=== PATIENT | female | born 1945 | race Caucasian/White ===

== ENCOUNTER 2024-07-19 18:34 | Outpatient (BNV) | payer MEDICARE, OTHER, SELFPAY | END 2024-07-27 07:00 | PROVIDERS: Admitting Provider Psychiatry & Neurology Psychiatry; PCP Family Medicine; Visit Provider Radiology Diagnostic Radiology | DX: I70.203 Unspecified atherosclerosis of native arteries of extremities, bilateral legs (principal) | CPT/HCPCS: 93922; 93925 ==

== ENCOUNTER 2024-07-19 18:34 | Inpatient (IN) | payer MEDICARE, OTHER, SELFPAY ==
--- NOTE | ~2024-07-19 | CT_ITS ---
EXAMINATION: CT ANGIOGRAM HEAD AND NECK CLINICAL INFORMATION: Right MCA density on prior head CT dated 07/21/2024. COMPARISON: CT head 07/21/2024. TECHNIQUE: Noncontrast axial imaging of the head was performed. This was followed by test bolus sequences and head and neck intravenous bolus administration 70 mL of Omnipaque 350. Helical imaging was performed in the axial plane from the aortic arch to the skull vertex. A [address] head was also obtained. The data was processed at the automation technologist's workstation for generation of MIP sequences. Angled MIPs and volume rendered reformatted images were also generated at an offline 3D workstation. Stenoses are assessed in accordance with NASCET criteria unless otherwise indicated. This CT examination was performed using dose optimization techniques as appropriate, variously including the following: *Automated exposure control *Adjustment of mA and/or kV according to patient size (this includes techniques or standardized protocols for targeted exams where dose is matched to indication/reason for exam; i.e. extremities or head) *Use of iterative reconstruction technique FINDINGS: NONCONTRAST HEAD CT: There is no evidence of intracranial hemorrhage or extra-axial fluid collection. There is no mass effect, or edema. No CT evidence of acute territorial infarct. Negative dense MCA sign. Negative insular ribbon sign. (Review of the prior CT shows no definite hyperdense MCA sign as well). Ventricles, sulci, and cisterns are normal in size and configuration for patient age. No hydrocephalus. No midline shift. No significant white matter abnormalities. Empty sella noted. Mild atheromatous calcification of the bilateral carotid siphons and V4 segments vertebral arteries bilaterally. Globes and orbital contents image normally. No extracranial soft tissue abnormalities. The paranasal sinuses, mastoid air cells, and tympanic cavities are normally aerated. No suspicious bony abnormalities. NECK CTA: -AORTIC ARCH: Normal in caliber. Three-vessel branching pattern. -GREAT VESSEL ORIGINS: Widely patent. -RIGHT COMMON CAROTID ARTERY: Normal in course and caliber to the level of the bifurcation. -CERVICAL RIGHT INTERNAL CAROTID ARTERY: Mild calcific atherosclerotic disease of the carotid bulb and proximal internal carotid artery without flow-limiting stenosis. -LEFT COMMON CAROTID ARTERY: Normal in course and caliber to the level of the bifurcation. -CERVICAL LEFT INTERNAL CAROTID ARTERY: Mild calcific atherosclerotic disease of the carotid bulb and proximal internal carotid artery without flow-limiting stenosis. -CERVICAL RIGHT VERTEBRAL ARTERY: Codominant. Normal in origin, course and caliber into the skull base. -CERVICAL LEFT VERTEBRAL ARTERY: Codominant. Normal in origin, course and caliber into the skull base. OTHER, SOFT TISSUES: -Left substernal goiter. -There is a mass with central dense calcification in the right parotid gland, superficial lobe, measuring 2.7 x 1.4 x 2.4 cm. (Series 10, image 605). -There is fatty change of both parotid glands. -No abnormal neck lymphadenopathy. -Imaged lung apices demonstrate partial expiratory appearance, with diffuse mosaic attenuation of the lung parenchyma. No effusions. No pneumothorax. CTA OF THE BRAIN: -INTRACRANIAL INTERNAL CAROTID ARTERIES: Calcific atherosclerotic disease of the intracranial internal carotid arteries without occlusion or flow-limiting stenosis. -RIGHT ANTERIOR CEREBRAL ARTERY: Normal A1 segment. Normal arborization of the distal segments. -LEFT ANTERIOR CEREBRAL ARTERY: Normal A1 segment. Normal arborization of the distal segments. -ANTERIOR COMMUNICATING ARTERY: Normal. -RIGHT MIDDLE CEREBRAL ARTERY: Normal M1 segment of the MCA without focal stenosis or occlusion. Normal arborization of the distal segments. -LEFT MIDDLE CEREBRAL ARTERY: Normal M1 segment of the MCA without focal stenosis or occlusion. Normal arborization of the distal segments. -RIGHT VERTEBRAL ARTERY V4: Normal in course and caliber. -LEFT VERTEBRAL ARTERY V4: Normal in course and caliber. Both join to form the basilar. -BASILAR ARTERY: Normal without focal stenosis or occlusion. Normal appearance of the proximal superior cerebellar arteries. Normal basilar tip. -RIGHT POSTERIOR CEREBRAL ARTERY: Normal P1 segment. Normal opacification of the distal SUPPLIER QUALITY ENGINEER segments. -LEFT POSTERIOR CEREBRAL ARTERY: Normal P1 segment. Normal opacification of the distal SUPPLIER QUALITY ENGINEER segments. -POSTERIOR COMMUNICATING ARTERIES: Both are small but present. Normal opacification of the superior sagittal, straight, transverse, and sigmoid sinuses. No venous thrombosis. CT/CT angio head neck IMPRESSION: 1. Noncontrast head CT demonstrating no evidence of acute infarction, intracranial hemorrhage, mass effect, or edema. No definite hyperdense MCA sign is appreciated on this or the prior examination. 2. There is no evidence of major arterial stenosis, occlusion, dissection, or aneurysm in the major cervical or intracranial arterial vasculature. 3. Mosaic attenuation of the lung parenchyma, most likely on the basis of underlying air trapping. Differential includes constrictive (obliterative) bronchiolitis, hypersensitivity pneumonitis, as well as less commonly bronchial asthma, vasculitis, and chronic PE. 4. There is a 2.7 x 1.4 x 2.4 cm mass within the right inferior superficial parotid gland with central dense calcification. Differential diagnosis is most likely related to pleomorphic adenoma or Wharthin tumor. Correlate with any prior imaging or biopsy of this abnormality. 5. Left substernal goiter. Electronically signed by: Carlos Dixon MD 07/23/2024 02:22 PM JIMMY
--- NOTE | ~2024-07-19 | US_ITS ---
EXAMINATION: US NONINVASIVE ASSESSMENT OF THE BOTH LOWER EXTREMITY WITH ARTERIAL DUPLEX AND ANKLE BRACHIAL INDICES (ABIS) CLINICAL INFORMATION: Claudication. COMPARISON: None available. TECHNIQUE: Duplex Doppler techniques with waveform analysis and measurement of velocities in the common femoral, profunda femoris, superficial femoral, popliteal and tibial arteries were performed. In addition, ankle pulse volume recordings, ankle pressure measurements and ankle brachial indices were obtained of the both lower extremity arterial system. The study was performed only at rest. FINDINGS: NONINVASIVE ASSESSMENT OF THE ARTERIES OF BILATERAL LOWER EXTREMITIES WITH ABIs: RIGHT LEG: Ankle-brachial index: 1.29. Ankle PVR: Abnormal waveforms. LEFT LEG: Ankle-brachial index: 1.22. Left ankle PVR: Abnormal waveforms. STEFFANIE Reference: 0.9 - 1.4 = normal - no significant arterial disease 0.7 - 0.89 = mild peripheral arterial disease 0.51 - 0.69 = moderate peripheral arterial disease 0.50 = severe peripheral arterial disease RIGHT LOWER EXTREMITY DUPLEX ULTRASOUND: Common femoral artery: 126 cm/s. Biphasic waveforms. Spectral broadening. Profunda femoris artery: 70 cm/s. Biphasic waveform. Spectral broadening. Superficial femoral artery (proximal): 84 cm/s. Biphasic waveform. Superficial femoral artery (mid): 76 cm/s. Biphasic waveform. Superficial femoral artery (distal): 45 cm/s. Biphasic waveform. Popliteal artery: 55 cm/s Biphasic waveform. Spectral broadening. Posterior tibial artery: 84-100 cm/s Biphasic waveform. Dorsalis pedis artery: 74 cm/s. Biphasic waveform. Spectral broadening. Anterior tibialis artery: 62 cm/s. Biphasic waveform. LEFT LOWER EXTREMITY DUPLEX ULTRASOUND: Common femoral artery: 124 cm/s. Biphasic waveform. Profunda femoris artery: 56 cm/s. Biphasic waveform. Superficial femoral artery (proximal): 77 cm/s. Biphasic waveform. Superficial femoral artery (mid): 73 cm/s. Biphasic waveform. Superficial femoral artery (distal): 71 cm/s. Biphasic waveform. Popliteal artery: 58 cm/s Biphasic waveform. Posterior tibial artery: 69 cm/s Diastolic flow reversal: Biphasic waveform. Anterior tibialis artery: 58 cm/s. Biphasic waveform. Spectral broadening. Dorsalis pedis artery: 61 cm/s. Biphasic waveform. Spectral broadening. US/US arterial duplex BI w/ STEFFANIE IMPRESSION: Mild inflow disease, both lower extremity. Electronically signed by: Kevin Redman MD 07/27/2024 02:26 PM EST RP
--- NOTE | ~2024-07-19 | CT_ITS ---
CLINICAL HISTORY: memory dx paranoia CT head without contrast. Comparison: None Findings: No acute intracranial hemorrhage, edema, mass effect or extra-axial collection. The right MCA appears slightly more dense than the left. May reflect dense hematocrit and not clearly that of a dense vessel sign. If any symptoms referable to the right MCA territory, follow-up head CTA suggested. Mild low-attenuation periventricular white matter changes of mild chronic small vessel ischemia. No acute alteration in the alvarenga-white matter interface. Ventricles and sulci age-appropriate. No hydrocephalus. Pituitary, parasellar, hypothalamic and pineal regions are unremarkable. Posterior fossa structures intact. No Chiari malformation. Skull intact. Included paranasal sinuses and mastoids clear. Globes and orbits intact. IMPRESSION: Slightly dense right MCA possibly dense hematocrit. However if symptoms referable to the right MCA distribution, suggest follow-up head CTA. Otherwise no acute intracranial process. This document has been electronically signed by: Josue Shukla MD on 07/21/2024 12:40:10
[2024-07-19 19:21] VITALS: BP 150/65; PULSE 76; RESP 20; TEMP 36.8; O2SAT 94
[2024-07-19 19:22] VITALS: BMI 25.2
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
--- NOTE | 2024-07-20 06:28 | PHA.MEDREC ---
Pharmacy Consult ? Medication Reconciliation Pharmacy has reviewed med rec done by nursing. Matches claims from the pharmacy fill history.
[2024-07-20 09:08] VITALS: BP 136/63; PULSE 67; RESP 16; TEMP 36.1; O2SAT 98
[2024-07-20] MEDS: Sertraline HCL 50 MG TABLET PO (09:10)
[2024-07-20] MEDS: Ezetimibe 10 MG TABLET PO (09:10)
[2024-07-20] MEDS: Cyanocobalamin (Vitamin B-12) 1,000 MCG TABLET 1000 MCG PO (09:10)
[2024-07-20] MEDS: Losartan Potassium 25 MG TABLET PO (09:10)
[2024-07-20 09:21] LABS: Estimated Average Glucose 114 mg/dL; Hemoglobin A1C 145.7725 umol/L; Hemoglobin A1c % 5.6 % (<6.0); Total Hemoglobin (HGBA1C) 3886.5417 umol/L
[2024-07-20 09:28] LABS: Cholesterol 266 mg/dL (<200); HDL Cholesterol 59 mg/dL (>40); LDL Cholesterol Calculated 174 mg/dL (<100); Triglycerides 166 mg/dL (<150)
[2024-07-20 09:43] LABS: Free T4 (Free Thyroxine) 1.08 ng/dL (0.71-1.85); Thyroid Stimulating Hormone 2.99 uIU/mL (0.32-4.0)
[2024-07-20 09:56] LABS: Folate 10.9 ng/mL (> or = 4.0); Vitamin B12 1249 pg/mL (200-900)
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
--- NOTE | 2024-07-20 19:56 | HO.PM.IMCN ---
History of Present Illness Data of Consult Service Date: 07/20/24 Primary Care Provider: Maria T Keenan [facility] Reason for consult: Admission H&P Pt is an 79-year-old female with a PMH significant for HTN, HLD, dementia, and depression who is admitted to [facility] for paranoid hallucinations and increasing confusion. Family apparently noted pt to have problems with ?confusion? in 2019 and moved her at that time from [place] to [place] to be closer to family. Pt's memory has continued to deteriorate and has not been remembering to take her medications. Medical consult for admission H&P. ?Pt seen and evaluated in her room where she is resting comfortably in bed. Pt is alert and oriented to self only. Denies acute complaints. No fever, chills, nausea, vomiting, or abdominal pain. Denies chest pain/pressure palpitations. No difficulty breathing, SOB, or cough. Labs reviewed, significant for elevated lipid panel. A1c WNL at 5.6. Review of Systems Review of Systems: Pt has no medical complaints at this time. [facility] Medical History (Updated 07/20/24 @ 20:36 by NAGA Pugh) Depression Dementia Essential hypertension Mixed hyperlipidemia Social History Household Members: Other Housing: [facility] Housing Other:: locked nursing facility Patient Tobacco Use Status: Never used Tobacco Use of substances other than those prescribed or required for medical reasons: No Currently Displaying Signs/Symptoms of Drug Intoxication Withdrawal: No Advance Directives: No Advance Directives Information Provided: No Do you have thoughts of harming others: None Do you have a plan to hurt others: No Plan Recently lost weight without trying: Unsure Patient : No : No Poor oral hygiene: No service: No Sexual orientation: Straight/Heterosexual Meds Allergies Allergy/AdvReac Type Severity Reaction Status Date / Time No Known Allergies Allergy Verified 07/19/24 20:01 Active Medications: Current Medications Acetaminophen (Acetaminophen 325 Mg Tablet) 650 mg PO Q6H PRN PRN Reason: Headache/Pain, Scale 1-10 Al Hydroxide/Mg Hydroxide (Magnesium Hydrox/Alum Hydrox 30 Ml Oral.Susp) 30 ml PO Q6H PRN PRN Reason: Heartburn/Nausea Cyanocobalamin (Cyanocobalamin (Vitamin B-12) 1,000 Mcg Tablet) 1,000 mcg PO DAILY [facility] Last Admin: 07/20/24 09:10 Dose: 1,000 mcg Ezetimibe (Ezetimibe 10 Mg Tablet) 10 mg PO DAILY [facility] Last Admin: 07/20/24 09:10 Dose: 10 mg Hydroxyzine HCl (Hydroxyzine Hcl 25 Mg Tablet) 25 mg PO Q6H PRN PRN Reason: mild anxiety Losartan Potassium (Losartan Potassium 25 Mg Tablet) 25 mg PO DAILY [facility]; Protocol Last Admin: 07/20/24 09:10 Dose: 25 mg Magnesium Hydroxide (Milk Of Magnesia 30 Ml Oral.Susp) 30 ml PO DAILY PRN PRN Reason: Constipation Sertraline HCl (Sertraline Hcl 50 Mg Tablet) 50 mg PO DAILY [facility] Last Admin: 07/20/24 09:10 Dose: 50 mg Trazodone HCl (Trazodone Hcl 50 Mg Tablet) 50 mg PO BEDTIME MRX1 PRN PRN Reason: Insomnia Home Medications ?Medication ?Instructions ?Recorded ?Confirmed ?Last Taken ?Type cyanocobalamin (vitamin B-12) 1,000 mcg PO DAILY 07/19/24 07/19/24 Unknown History 1,000 mcg tablet ezetimibe 10 mg tablet 10 mg DAILY 07/19/24 07/19/24 Unknown History losartan 25 mg tablet 25 mg PO DAILY 07/19/24 07/19/24 Unknown History sertraline 50 mg tablet 50 mg PO DAILY 07/19/24 07/19/24 Unknown History Physical Exam Vital Signs and Narrative: Vital Signs: Last Vital Signs Temp 96.9 F 07/20/24 09:08 Pulse 67 07/20/24 09:08 Resp 16 07/20/24 09:08 BP 136/63 07/20/24 09:08 Pulse Ox 98 07/20/24 09:08 O2 Del Method Room Air 07/20/24 09:08 BMI result Body Mass Index 25.2 General: AOx1, no acute distress Resp: CTA bilaterally CVS: S1, S2, RRR GI: +BS, NT, no distention Skin: Warm, dry Neuro: Cranial nerves II-XII grossly intact bilaterally. Motor grossly intact bilaterally Extremities: No edema Psych: Pleasantly confused, cooperative. Results Labs Labs: Laboratory Results - last 24 hr 07/20/24 07/20/24 08:41 08:42 Estimat Average Glucose 114 Hemoglobin A1c % 5.6 Triglycerides 166 H Cholesterol 266 H LDL Cholesterol, Calc 174 H HDL Cholesterol 59 Vitamin B12 1249 H Folate 10.9 TSH 2.99 Free T4 1.08 Assessment and Plan (1) Medical clearance for psychiatric admission: Status: Acute Plan Pt is an 79-year-old female with a PMH significant for HTN, HLD, dementia, and depression who is admitted to [facility] for paranoid hallucinations and increasing confusion. Family apparently noted pt to have problems with ?confusion? in 2019 and moved her at that time from [place] to [place] to be closer to family. Pt's memory has continued to deteriorate and has not been remembering to take her medications. Medical consult for admission H&P. Mood disorder/dementia Plan as per Psychiatry HTN Continue losartan HLD Patient's lipid profile elevated Likely secondary to med noncompliance Continue ezetimibe Pt otherwise seems stable and without acute medical complaints. Will sign off for now. Thank you for allowing us to participate in the care of this patient. Please re-consult if any acute complaints or issues arise.
[2024-07-20 20:19] VITALS: BP 128/61; PULSE 82; RESP 17; TEMP 36.4; O2SAT 95
[2024-07-20] MEDS: risperiDONE 0.5 MG TABLET PO (21:50)
[2024-07-21 08:45] VITALS: BP 118/57; PULSE 77; RESP 16; TEMP 36.7; O2SAT 96
[2024-07-21 08:50] VITALS: BP 113/59
[2024-07-21] MEDS: Sertraline HCL 50 MG TABLET PO (08:50)
[2024-07-21] MEDS: Rivastigmine Tartrate 1.5 MG CAPSULE PO ×2 (08:50→19:43)
[2024-07-21] MEDS: Cyanocobalamin (Vitamin B-12) 1,000 MCG TABLET 1000 MCG PO (08:50)
[2024-07-21] MEDS: Losartan Potassium 25 MG TABLET PO (08:50)
[2024-07-21] MEDS: Ezetimibe 10 MG TABLET PO (08:50)
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
--- NOTE | 2024-07-21 12:58 | PC.NURSE ---
CT scan results from today called back critical and reported results via [employer] to Dr. Taylor.
[2024-07-21 19:40] VITALS: BP 145/58; PULSE 86; RESP 15; TEMP 36.2; O2SAT 95
[2024-07-21] MEDS: risperiDONE 0.5 MG TABLET PO (19:43)
[2024-07-22 07:44] VITALS: BP 133/65; PULSE 93; RESP 16; TEMP 36.4; O2SAT 95
[2024-07-22 08:24] VITALS: BP 133/65
[2024-07-22] MEDS: Rivastigmine Tartrate 1.5 MG CAPSULE PO ×2 (08:24→19:54)
[2024-07-22] MEDS: Losartan Potassium 25 MG TABLET PO (08:24)
[2024-07-22] MEDS: Cyanocobalamin (Vitamin B-12) 1,000 MCG TABLET 1000 MCG PO (08:24)
[2024-07-22] MEDS: Sertraline HCL 50 MG TABLET PO (08:24)
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
[2024-07-22] MEDS: Ezetimibe 10 MG TABLET PO (11:20)
[2024-07-22] MEDS: risperiDONE 0.5 MG TABLET PO (19:54)
[2024-07-22 20:00] VITALS: BP 139/63; PULSE 86; RESP 18; TEMP 35.7; O2SAT 95
--- NOTE | 2024-07-23 09:15 | HO.PSYCHPN ---
Subjective Subjective Date of Service: 07/23/24 Reason For Visit: paranoia memory loss Subjective Notes: Conditional Voluntary Interim History: Pt slept through the night. She is taking medications as prescribed. She was started on risperidone for paranoia. She is tolerating medication well. She presents as pleasant. She is not oriented to place, situation, or month or year. She denies any physical discomfort. Head CT had shown right MCA density. ordered CTA- no definitive signs of MCA density, no evidence of occlusion, dissection, stenosis or aneurysm. Mass with central dense calcification on right parotid gland (may need to be referred to ENT OP). No behavioral concerns. She is social with select peers. Medication Compliance: Yes Side effects from medications: No Diagnostics Vital Signs (24Hr): Vital Signs - 24 hr 07/22/24 20:00 Temperature 96.2 F L Pulse Rate 86 Respiratory Rate 18 Blood Pressure 139/63 Pulse Oximetry 95 Oxygen Delivery Method Room Air BMI result Body Mass Index 25.2 Labs 07/23/24 10:25 Medications Medications Current Medications Acetaminophen (Acetaminophen 325 Mg Tablet) 650 mg PO Q6H PRN PRN Reason: Headache/Pain, Scale 1-10 Al Hydroxide/Mg Hydroxide (Magnesium Hydrox/Alum Hydrox 30 Ml Oral.Susp) 30 ml PO Q6H PRN PRN Reason: Heartburn/Nausea Cyanocobalamin (Cyanocobalamin (Vitamin B-12) 1,000 Mcg Tablet) 1,000 mcg PO DAILY [facility] Last Admin: 07/22/24 08:24 Dose: 1,000 mcg Ezetimibe (Ezetimibe 10 Mg Tablet) 10 mg PO DAILY [facility] Last Admin: 07/22/24 11:20 Dose: 10 mg Hydroxyzine HCl (Hydroxyzine Hcl 25 Mg Tablet) 25 mg PO Q6H PRN PRN Reason: mild anxiety Losartan Potassium (Losartan Potassium 25 Mg Tablet) 25 mg PO DAILY [facility]; Protocol Last Admin: 07/22/24 08:24 Dose: 25 mg Magnesium Hydroxide (Milk Of Magnesia 30 Ml Oral.Susp) 30 ml PO DAILY PRN PRN Reason: Constipation Risperidone (Risperidone 0.5 Mg Tablet) 0.5 mg PO BEDTIME [facility] Last Admin: 07/22/24 19:54 Dose: 0.5 mg Rivastigmine Tartrate (Rivastigmine Tartrate 1.5 Mg Capsule) 1.5 mg PO BID [facility] Last Admin: 07/22/24 19:54 Dose: 1.5 mg Sertraline HCl (Sertraline Hcl 50 Mg Tablet) 50 mg PO DAILY [facility] Last Admin: 07/22/24 08:24 Dose: 50 mg Trazodone HCl (Trazodone Hcl 50 Mg Tablet) 50 mg PO BEDTIME MRX1 PRN PRN Reason: Insomnia Allergies Allergies Allergy/AdvReac Type Severity Reaction Status Date / Time No Known Allergies Allergy Verified 07/19/24 20:01 Assessment & Plan Assessment & Plan (1) Major neurocognitive disorder due to another medical condition, with psychotic disturbance: Status: Acute Code(s): F02.82 - Dementia in other diseases classified elsewhere, unspecified severity, with psychotic disturbance (2) Major depressive disorder, recurrent: Status: Acute Code(s): F33.9 - Major depressive disorder, recurrent, unspecified Plan The patient has a history of recurrent depression 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 History of depression history of hypertension hyperlipidemia unclear if has been treated unclear if patient has been taking her medication has been on Aricept in the past. Check h ead CT UA CBC Chem profile TSH B12 folate start Risperdal 0.5 mg at bedtime case was discussed with patient's son who will bring in paperwork regarding healthcare proxy which can be activated when we have clarification. Patient currently on a section 12 B continue sertraline start low-dose Exelon continue outpatient medications 07/21: Continue current management and treatment plan. Consider neurology consultation for head CT reading of Slightly dense right MCA possibly dense hematocrit. 07/22: continue current management and treatment plan. Consider neurology consultation for head CT reading of Slightly dense right MCA possibly dense hematocrit. 07/[address] had shown right MCA density. ordered CTA- no definitive signs of MCA density, no evidence of occlusion, dissection, stenosis or aneurysm. Mass with central dense calcification on right parotid gland measuring 2.7 x 1.4 x 2.4 cm (may need to be referred to ENT OP). Patient educated on: diagnosis and medication risk/benefits Guardian/Caregiver educated on: medication risk/benefits Informed Consent: understands Reason for continued inpatient stay Substantial Risk for: inability to function Time Spent With Patient Time: Total time managing care of this patient today _20___ minutes.
[2024-07-23 09:41] VITALS: BP 127/62; PULSE 81; RESP 16; TEMP 36.8; O2SAT 92
[2024-07-23] MEDS: Rivastigmine Tartrate 1.5 MG CAPSULE PO ×2 (09:42→20:31)
[2024-07-23] MEDS: Cyanocobalamin (Vitamin B-12) 1,000 MCG TABLET 1000 MCG PO (09:42)
[2024-07-23] MEDS: Ezetimibe 10 MG TABLET PO (09:42)
[2024-07-23] MEDS: Sertraline HCL 50 MG TABLET PO (09:42)
[2024-07-23] MEDS: Losartan Potassium 25 MG TABLET PO (09:43)
--- NOTE | 2024-07-23 09:50 | PC.NURSE ---
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 Staff stated that she will send someone.
[2024-07-23 10:52] LABS: Alanine Aminotransferase 16 U/L (0-31); Albumin Level 4.2 g/dL (3.5-5.0); Alkaline Phosphatase 50 U/L (39-117); Anion Gap 15 (12-20); Aspartate Amino Transferase 24 U/L (5-31); Bilirubin Total 0.5 mg/dL (0.0-1.0); Blood Urea Nitrogen 18 mg/dL (9-16); Calcium 9.6 mg/dL (8.4-10.2); Carbon Dioxide 23 mmol/L (22-29); Chloride 107 mmol/L (96-108); Creatinine Clr Calc Pharmacy 45.7; Estimated Glomerular Filt Rate 59; Glucose Random 106 mg/dL (60-115); Potassium 4.2 mmol/L (3.3-5.1); Sodium 141 mmol/L (135-145); Total Protein 7.9 g/dL (6.5-8.0)
[2024-07-23] MEDS: iohexoL 350 MG/ML 75 ML INFUS..BTL 70 ML IV (13:10)
[2024-07-23 20:00] VITALS: BP 139/65; PULSE 89; RESP 6; TEMP 36.4; O2SAT 95
[2024-07-23] MEDS: risperiDONE 0.5 MG TABLET PO (20:31)
[2024-07-24 10:36] VITALS: BP 153/61; PULSE 90; RESP 16; TEMP 36.8; O2SAT 95
[2024-07-24] MEDS: Rivastigmine Tartrate 1.5 MG CAPSULE PO ×2 (10:37→21:07)
[2024-07-24] MEDS: Sertraline HCL 50 MG TABLET PO (10:37)
[2024-07-24] MEDS: Losartan Potassium 25 MG TABLET PO (10:37)
[2024-07-24] MEDS: Ezetimibe 10 MG TABLET PO (10:37)
[2024-07-24] MEDS: Cyanocobalamin (Vitamin B-12) 1,000 MCG TABLET 1000 MCG PO (10:37)
--- NOTE | 2024-07-24 19:43 | HO.PSYCHPN ---
Subjective Subjective Date of Service: 07/24/24 Reason For Visit: paranoia memory loss Interim History: Pt slept through the night. She is taking medications as prescribed. She was started on risperidone for paranoia. She is tolerating medication well. She presents as pleasant. She is not oriented to place, situation, or month or year. She denies any physical discomfort. Head CT had shown right MCA density. ordered CTA- no definitive signs of MCA density, no evidence of occlusion, dissection, stenosis or aneurysm. Mass with central dense calcification on right parotid gland (may need to be referred to ENT OP). No behavioral concerns. She is social with select peers. Review of Systems Review of Systems Pt has no medical complaints at this time. Mental Status Exam Mental Status Exam Narrative: Appearance: wearing casual clothing, good hygiene, in NAD Behavior: cooperative and friendly Psychomotor: no agitation or retardation, no motor symptoms noted on lower or upper extremities. Speech: clear, normal rate/rhythm/volume, spontaneous TP: mostly linear TC: feeling safe here, likes people here Mood: good Affect: congruent, bright SI: none HI: none VH/AH: none Delusions: no overt now, still thinks someone was at her house Insight/judgment: impaired x 2. Memory/cog: alert, not oriented to place, month, year nor situation Diagnostics Vital Signs (24Hr): Vital Signs - 24 hr 07/23/24 20:00 07/24/24 10:36 Temperature 97.5 F 98.2 F Pulse Rate 89 90 Respiratory Rate 6 L 16 Blood Pressure 139/65 153/61 H Pulse Oximetry 95 95 Oxygen Delivery Method Room Air BMI result Body Mass Index 25.2 Labs 07/23/24 10:25 Labs: Laboratory Results - last 48 hr 07/23/24 10:25 Sodium 141 Potassium 4.2 Chloride 107 Carbon Dioxide 23 Anion Gap 15 BUN 18 H Creatinine 0.92 Estim Creat Clear Calc 45.7 Estimated GFR 59 Random Glucose 106 Calcium 9.6 Total Bilirubin 0.5 AST 24 ALT 16 Alkaline Phosphatase 50 Total Protein 7.9 Albumin 4.2 Imaging Radiology Impressions: ITS Impressions Head/Neck CTA 07/23/24 12:38 IMPRESSION: 1. Noncontrast head CT demonstrating no evidence of acute infarction, intracranial hemorrhage, mass effect, or edema. No definite hyperdense MCA sign is appreciated on this or the prior examination. 2. There is no evidence of major arterial stenosis, occlusion, dissection, or aneurysm in the major cervical or intracranial arterial vasculature. 3. Mosaic attenuation of the lung parenchyma, most likely on the basis of underlying air trapping. Differential includes constrictive (obliterative) bronchiolitis, hypersensitivity pneumonitis, as well as less commonly bronchial asthma, vasculitis, and chronic PE. 4. There is a 2.7 x 1.4 x 2.4 cm mass within the right inferior superficial parotid gland with central dense calcification. Differential diagnosis is most likely related to pleomorphic adenoma or Wharthin tumor. Correlate with any prior imaging or biopsy of this abnormality. 5. Left substernal goiter. Electronically signed by: Carlos Dixon MD 07/23/2024 02:22 PM [facility] Medications Medications Current Medications Acetaminophen (Acetaminophen 325 Mg Tablet) 650 mg PO Q6H PRN PRN Reason: Headache/Pain, Scale 1-10 Al Hydroxide/Mg Hydroxide (Magnesium Hydrox/Alum Hydrox 30 Ml Oral.Susp) 30 ml PO Q6H PRN PRN Reason: Heartburn/Nausea Cyanocobalamin (Cyanocobalamin (Vitamin B-12) 1,000 Mcg Tablet) 1,000 mcg PO DAILY [facility] Last Admin: 07/24/24 10:37 Dose: 1,000 mcg Ezetimibe (Ezetimibe 10 Mg Tablet) 10 mg PO DAILY [facility] Last Admin: 07/24/24 10:37 Dose: 10 mg Hydroxyzine HCl (Hydroxyzine Hcl 25 Mg Tablet) 25 mg PO Q6H PRN PRN Reason: mild anxiety Losartan Potassium (Losartan Potassium 25 Mg Tablet) 25 mg PO DAILY [facility]; Protocol Last Admin: 07/24/24 10:37 Dose: 25 mg Magnesium Hydroxide (Milk Of Magnesia 30 Ml Oral.Susp) 30 ml PO DAILY PRN PRN Reason: Constipation Risperidone (Risperidone 0.5 Mg Tablet) 0.5 mg PO BEDTIME [facility] Last Admin: 07/23/24 20:31 Dose: 0.5 mg Rivastigmine Tartrate (Rivastigmine Tartrate 1.5 Mg Capsule) 1.5 mg PO BID [facility] Last Admin: 07/24/24 10:37 Dose: 1.5 mg Sertraline HCl (Sertraline Hcl 50 Mg Tablet) 50 mg PO DAILY [facility] Last Admin: 07/24/24 10:37 Dose: 50 mg Trazodone HCl (Trazodone Hcl 50 Mg Tablet) 50 mg PO BEDTIME MRX1 PRN PRN Reason: Insomnia Allergies Allergies Allergy/AdvReac Type Severity Reaction Status Date / Time No Known Allergies Allergy Verified 07/19/24 20:01 Assessment & Plan Assessment & Plan (1) Major neurocognitive disorder due to another medical condition, with psychotic disturbance: Status: Acute Code(s): F02.82 - Dementia in other diseases classified elsewhere, unspecified severity, with psychotic disturbance Plan The patient has a history of recurrent depression 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 History of depression history of hypertension hyperlipidemia unclear if has been treated unclear if patient has been taking her medication has been on Aricept in the past. Check h ead CT UA CBC Chem profile TSH B12 folate start Risperdal 0.5 mg at bedtime case was discussed with patient's son who will bring in paperwork regarding healthcare proxy which can be activated when we have clarification. Patient currently on a section 12 B continue sertraline start low-dose Exelon continue outpatient medications 07/21: Continue current management and treatment plan. Consider neurology consultation for head CT reading of Slightly dense right MCA possibly dense hematocrit. 07/22: continue current management and treatment plan. Consider neurology consultation for head CT reading of Slightly dense right MCA possibly dense hematocrit. 07/[address] had shown right MCA density. ordered CTA- no definitive signs of MCA density, no evidence of occlusion, dissection, stenosis or aneurysm. Mass with central dense calcification on right parotid gland measuring 2.7 x 1.4 x 2.4 cm (may need to be referred to ENT OP). 07/24 continue current tx. HCP received from family but it is invalid as it does not contain witness signatures. Pt does have capacity to name HCP and understands form. Reason for continued inpatient stay Substantial Risk for: inability to function Time Spent With Patient Time: Total time managing care of this patient today ____ minutes.
[2024-07-24 20:00] VITALS: BP 129/62; PULSE 82; RESP 16; TEMP 36.6; O2SAT 94
[2024-07-24] MEDS: risperiDONE 0.5 MG TABLET PO (21:07)
[2024-07-25 08:00] VITALS: BP 159/65; PULSE 72; TEMP 36.8; O2SAT 95
[2024-07-25] MEDS: Ezetimibe 10 MG TABLET PO (08:37)
[2024-07-25] MEDS: Sertraline HCL 50 MG TABLET PO (08:37)
[2024-07-25] MEDS: Losartan Potassium 25 MG TABLET PO (08:37)
[2024-07-25] MEDS: Cyanocobalamin (Vitamin B-12) 1,000 MCG TABLET 1000 MCG PO (08:38)
[2024-07-25] MEDS: Rivastigmine Tartrate 1.5 MG CAPSULE PO ×2 (08:38→20:31)
--- NOTE | 2024-07-25 17:07 | P.PNPSI_ITS ---
Subjective Subjective Date of Service: 07/25/24 Reason For Visit: paranoia memory loss Subjective Notes: Conditional Voluntary Healthcare Proxy: Yes Interim History: Pt slept through the night. She is taking medications as prescribed. No overt paranoid delusions noted when meeting with patient. She is social with peers, feels safe. She denies SI/HI. No overt psychosis. When asked about what was going at home, she states it was horrible, I don't even want to talk about that! She denies any physical concerns. She attends groups. Review of Systems Review of Systems Pt has no medical complaints at this time. Mental Status Exam Mental Status Exam Narrative: Appearance: wearing casual clothing, good hygiene, in NAD Behavior: cooperative and friendly Psychomotor: no agitation or retardation, no motor symptoms noted on lower or upper extremities. Speech: clear, normal rate/rhythm/volume, spontaneous TP: mostly linear TC: feeling safe here, likes people here Mood: good Affect: congruent, bright SI: none HI: none VH/AH: none Delusions: no overt now, still thinks someone was at her house Insight/judgment: impaired x 2. Memory/cog: alert, not oriented to place, month, year nor situation Diagnostics Vital Signs (24Hr): Vital Signs - 24 hr 07/24/24 20:00 07/25/24 08:00 Temperature 98 F 98.2 F Pulse Rate 82 72 Respiratory Rate 16 Blood Pressure 129/62 159/65 H Pulse Oximetry 94 95 Oxygen Delivery Method Room Air Room Air BMI result Body Mass Index 25.2 Labs 07/23/24 10:25 Imaging Radiology Impressions: ITS Impressions Head/Neck CTA 07/23/24 12:38 IMPRESSION: 1. Noncontrast head CT demonstrating no evidence of acute infarction, intracranial hemorrhage, mass effect, or edema. No definite hyperdense MCA sign is appreciated on this or the prior examination. 2. There is no evidence of major arterial stenosis, occlusion, dissection, or aneurysm in the major cervical or intracranial arterial vasculature. 3. Mosaic attenuation of the lung parenchyma, most likely on the basis of underlying air trapping. Differential includes constrictive (obliterative) bronchiolitis, hypersensitivity pneumonitis, as well as less commonly bronchial asthma, vasculitis, and chronic PE. 4. There is a 2.7 x 1.4 x 2.4 cm mass within the right inferior superficial parotid gland with central dense calcification. Differential diagnosis is most likely related to pleomorphic adenoma or Wharthin tumor. Correlate with any prior imaging or biopsy of this abnormality. 5. Left substernal goiter. Electronically signed by: Carlos Dixon MD 07/23/2024 02:22 PM [facility] Medications Medications Current Medications Acetaminophen (Acetaminophen 325 Mg Tablet) 650 mg PO Q6H PRN PRN Reason: Headache/Pain, Scale 1-10 Al Hydroxide/Mg Hydroxide (Magnesium Hydrox/Alum Hydrox 30 Ml Oral.Susp) 30 ml PO Q6H PRN PRN Reason: Heartburn/Nausea Cyanocobalamin (Cyanocobalamin (Vitamin B-12) 1,000 Mcg Tablet) 1,000 mcg PO DAILY [facility] Last Admin: 07/25/24 08:38 Dose: 1,000 mcg Ezetimibe (Ezetimibe 10 Mg Tablet) 10 mg PO DAILY [facility] Last Admin: 07/25/24 08:37 Dose: 10 mg Hydroxyzine HCl (Hydroxyzine Hcl 25 Mg Tablet) 25 mg PO Q6H PRN PRN Reason: mild anxiety Losartan Potassium (Losartan Potassium 25 Mg Tablet) 25 mg PO DAILY [facility]; Protocol Last Admin: 07/25/24 08:37 Dose: 25 mg Magnesium Hydroxide (Milk Of Magnesia 30 Ml Oral.Susp) 30 ml PO DAILY PRN PRN Reason: Constipation Risperidone (Risperidone 0.5 Mg Tablet) 0.5 mg PO BEDTIME [facility] Last Admin: 07/24/24 21:07 Dose: 0.5 mg Rivastigmine Tartrate (Rivastigmine Tartrate 1.5 Mg Capsule) 1.5 mg PO BID [facility] Last Admin: 07/25/24 08:38 Dose: 1.5 mg Sertraline HCl (Sertraline Hcl 50 Mg Tablet) 50 mg PO DAILY [facility] Last Admin: 07/25/24 08:37 Dose: 50 mg Trazodone HCl (Trazodone Hcl 50 Mg Tablet) 50 mg PO BEDTIME MRX1 PRN PRN Reason: Insomnia Allergies Allergies Allergy/AdvReac Type Severity Reaction Status Date / Time No Known Allergies Allergy Verified 07/19/24 20:01 Assessment & Plan Assessment & Plan (1) Major neurocognitive disorder due to another medical condition, with psychotic disturbance: Status: Acute Code(s): F02.82 - Dementia in other diseases classified elsewhere, unspecified severity, with psychotic disturbance Plan The patient has a history of recurrent depression 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 History of depression history of hypertension hyperlipidemia unclear if has been treated unclear if patient has been taking her medication has been on Aricept in the past. Check h ead CT UA CBC Chem profile TSH B12 folate start Risperdal 0.5 mg at bedtime case was discussed with patient's son who will bring in paperwork regarding healthcare proxy which can be activated when we have clarification. Patient currently on a section 12 B continue sertraline start low-dose Exelon continue outpatient medications 07/21: Continue current management and treatment plan. Consider neurology consultation for head CT reading of Slightly dense right MCA possibly dense hematocrit. 07/22: continue current management and treatment plan. Consider neurology consultation for head CT reading of Slightly dense right MCA possibly dense hematocrit. 07/[address] had shown right MCA density. ordered CTA- no definitive signs of MCA density, no evidence of occlusion, dissection, stenosis or aneurysm. Mass with central dense calcification on right parotid gland measuring 2.7 x 1.4 x 2.4 cm (may need to be referred to ENT OP). 07/24 continue current tx. HCP received from family but it is invalid as it does not contain witness signatures. Pt does have capacity to name HCP and understands form. 07/25 Pt able to complete HCP. HCP has been invoked. She is stable, no behavioral concerns. family meeting pending. Reason for continued inpatient stay Substantial Risk for: inability to function Time Spent With Patient Time: Total time managing care of this patient today ____ minutes.
[2024-07-25 20:00] VITALS: BP 140/63; PULSE 90; RESP 17; TEMP 36.6; O2SAT 92
[2024-07-25] MEDS: hydrOXYzine HCL 25 MG TABLET PO (20:31)
[2024-07-25] MEDS: risperiDONE 0.5 MG TABLET PO (20:31)
[2024-07-26 08:00] VITALS: PULSE 84; RESP 17; TEMP 36.4; O2SAT 95
[2024-07-26 08:29] VITALS: BP 155/67
[2024-07-26] MEDS: Losartan Potassium 25 MG TABLET PO (08:29)
[2024-07-26] MEDS: Ezetimibe 10 MG TABLET PO (08:29)
[2024-07-26] MEDS: Rivastigmine Tartrate 1.5 MG CAPSULE PO ×2 (08:29→20:31)
[2024-07-26] MEDS: Sertraline HCL 50 MG TABLET PO (08:29)
[2024-07-26] MEDS: Cyanocobalamin (Vitamin B-12) 1,000 MCG TABLET 1000 MCG PO (08:29)
[2024-07-26 13:27] VITALS: BMI 25.6
[2024-07-26 20:00] VITALS: BP 137/68; PULSE 86; RESP 16; TEMP 36.2; O2SAT 92
[2024-07-26] MEDS: risperiDONE 0.5 MG TABLET PO (20:31)
--- NOTE | 2024-07-26 20:58 | HO.PSYCHPN ---
Subjective Subjective Date of Service: 07/26/24 Reason For Visit: paranoia memory loss Subjective Notes: Conditional Voluntary Interim History: Pt slept through the night. She is taking medications as prescribed. She is social with peers, attends groups. She reports calves pain when ambulating, no pain when she is sitting. on exam- no pain when touching, no edema, slightly warm. consulted with Dr. Mg who recommends consult with vascular doctor. 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 Rosales, they don't see pts on psych unit. Discussed again with Dr. Mg who recommends ordering US arterial duplex BI with [facility]. Medication Compliance: Yes Side effects from medications: No Review of Systems Review of Systems Pt has no medical complaints at this time. Mental Status Exam Mental Status Exam Narrative: Appearance: wearing casual clothing, good hygiene, in NAD Behavior: cooperative and friendly Psychomotor: no agitation or retardation, no motor symptoms noted on lower or upper extremities. Speech: clear, normal rate/rhythm/volume, spontaneous TP: mostly linear TC: feeling safe here, likes people here Mood: good Affect: congruent, bright SI: none HI: none VH/AH: none Delusions: no overt now, still thinks someone was at her house Insight/judgment: impaired x 2. Memory/cog: alert, not oriented to place, month, year nor situation Diagnostics Vital Signs (24Hr): Vital Signs - 24 hr 07/26/24 08:00 07/26/24 08:29 Temperature 97.5 F Pulse Rate 84 Respiratory Rate 17 Blood Pressure 155/67 H Pulse Oximetry 95 Oxygen Delivery Method Room Air BMI result Body Mass Index 25.6 Labs 07/23/24 10:25 Imaging Radiology Impressions: ITS Impressions Head/Neck CTA 07/23/24 12:38 IMPRESSION: 1. Noncontrast head CT demonstrating no evidence of acute infarction, intracranial hemorrhage, mass effect, or edema. No definite hyperdense MCA sign is appreciated on this or the prior examination. 2. There is no evidence of major arterial stenosis, occlusion, dissection, or aneurysm in the major cervical or intracranial arterial vasculature. 3. Mosaic attenuation of the lung parenchyma, most likely on the basis of underlying air trapping. Differential includes constrictive (obliterative) bronchiolitis, hypersensitivity pneumonitis, as well as less commonly bronchial asthma, vasculitis, and chronic PE. 4. There is a 2.7 x 1.4 x 2.4 cm mass within the right inferior superficial parotid gland with central dense calcification. Differential diagnosis is most likely related to pleomorphic adenoma or Wharthin tumor. Correlate with any prior imaging or biopsy of this abnormality. 5. Left substernal goiter. Electronically signed by: Carlos Dixon MD 07/23/2024 02:22 PM [facility] Medications Medications Current Medications Acetaminophen (Acetaminophen 325 Mg Tablet) 650 mg PO Q6H PRN PRN Reason: Headache/Pain, Scale 1-10 Al Hydroxide/Mg Hydroxide (Magnesium Hydrox/Alum Hydrox 30 Ml Oral.Susp) 30 ml PO Q6H PRN PRN Reason: Heartburn/Nausea Cyanocobalamin (Cyanocobalamin (Vitamin B-12) 1,000 Mcg Tablet) 1,000 mcg PO DAILY [facility] Last Admin: 07/26/24 08:29 Dose: 1,000 mcg Ezetimibe (Ezetimibe 10 Mg Tablet) 10 mg PO DAILY [facility] Last Admin: 07/26/24 08:29 Dose: 10 mg Hydroxyzine HCl (Hydroxyzine Hcl 25 Mg Tablet) 25 mg PO Q6H PRN PRN Reason: mild anxiety Last Admin: 07/25/24 20:31 Dose: 25 mg Losartan Potassium (Losartan Potassium 25 Mg Tablet) 25 mg PO DAILY [facility]; Protocol Last Admin: 07/26/24 08:29 Dose: 25 mg Magnesium Hydroxide (Milk Of Magnesia 30 Ml Oral.Susp) 30 ml PO DAILY PRN PRN Reason: Constipation Risperidone (Risperidone 0.5 Mg Tablet) 0.5 mg PO BEDTIME [facility] Last Admin: 07/26/24 20:31 Dose: 0.5 mg Rivastigmine Tartrate (Rivastigmine Tartrate 1.5 Mg Capsule) 1.5 mg PO BID [facility] Last Admin: 07/26/24 20:31 Dose: 1.5 mg Sertraline HCl (Sertraline Hcl 50 Mg Tablet) 50 mg PO DAILY [facility] Last Admin: 07/26/24 08:29 Dose: 50 mg Trazodone HCl (Trazodone Hcl 50 Mg Tablet) 50 mg PO BEDTIME MRX1 PRN PRN Reason: Insomnia Allergies Allergies Allergy/AdvReac Type Severity Reaction Status Date / Time No Known Allergies Allergy Verified 07/19/24 20:01 Assessment & Plan Assessment & Plan (1) Major neurocognitive disorder due to another medical condition, with psychotic disturbance: Status: Acute Code(s): F02.82 - Dementia in other diseases classified elsewhere, unspecified severity, with psychotic disturbance Plan The patient has a history of recurrent depression 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 History of depression history of hypertension hyperlipidemia unclear if has been treated unclear if patient has been taking her medication has been on Aricept in the past. Check h ead CT UA CBC Chem profile TSH B12 folate start Risperdal 0.5 mg at bedtime case was discussed with patient's son who will bring in paperwork regarding healthcare proxy which can be activated when we have clarification. Patient currently on a section 12 B continue sertraline start low-dose Exelon continue outpatient medications 07/21: Continue current management and treatment plan. Consider neurology consultation for head CT reading of Slightly dense right MCA possibly dense hematocrit. 07/22: continue current management and treatment plan. Consider neurology consultation for head CT reading of Slightly dense right MCA possibly dense hematocrit. 07/[address] had shown right MCA density. ordered CTA- no definitive signs of MCA density, no evidence of occlusion, dissection, stenosis or aneurysm. Mass with central dense calcification on right parotid gland measuring 2.7 x 1.4 x 2.4 cm (may need to be referred to ENT OP). 07/24 continue current tx. HCP received from family but it is invalid as it does not contain witness signatures. Pt does have capacity to name HCP and understands form. 07/25 continue tx 07/26 ordered US arterial duplex BI w/ [facility]. consulted Dr. Mg who initially had recommended consult to vascular, however, per Dr. Rosales they don't see pts on psych units. Dr. Mg then recommended US arterial duplex BI w/[facility]. Reason for continued inpatient stay Substantial Risk for: inability to function Time Spent With Patient Time: Total time managing care of this patient today ____ minutes.
[2024-07-27 08:00] VITALS: BP 136/60; PULSE 81; RESP 18; TEMP 36; O2SAT 96
[2024-07-27] MEDS: Rivastigmine Tartrate 1.5 MG CAPSULE PO ×2 (09:44→20:52)
[2024-07-27] MEDS: Ezetimibe 10 MG TABLET PO (09:44)
[2024-07-27] MEDS: Cyanocobalamin (Vitamin B-12) 1,000 MCG TABLET 1000 MCG PO (09:44)
[2024-07-27] MEDS: Losartan Potassium 25 MG TABLET PO (09:44)
[2024-07-27] MEDS: Sertraline HCL 50 MG TABLET PO (09:44)
--- NOTE | 2024-07-27 16:48 | P.PNPSI_ITS ---
Subjective Subjective Date of Service: 07/27/24 Reason For Visit: paranoia memory loss Subjective Notes: Conditional Voluntary Interim History: Pt slept through the night. She is taking medications as prescribed. She continues to present as social with peers. No behavioral concerns. No oriented to situation, month or year. She has good hygiene. We had family meeting discussed aftercare planning with goal to return home with additional services, family to follow up on [facility] application and eventually placement. Some increased paranoid ideas when talking about returning home and her not feeling safe. Medication Compliance: Yes Review of Systems Review of Systems Pt has no medical complaints at this time. Mental Status Exam Mental Status Exam Narrative: Appearance: wearing casual clothing, good hygiene, in NAD Behavior: cooperative and friendly Psychomotor: no agitation or retardation, no motor symptoms noted on lower or upper extremities. Speech: clear, normal rate/rhythm/volume, spontaneous TP: mostly linear TC: feeling safe here, likes people here Mood: good Affect: congruent, bright SI: none HI: none VH/AH: none Delusions: no overt now, still thinks someone was at her house Insight/judgment: impaired x 2. Memory/cog: alert, not oriented to place, month, year nor situation Diagnostics Vital Signs (24Hr): Vital Signs - 24 hr 07/26/24 20:00 07/27/24 08:00 Temperature 97.2 F 96.8 F Pulse Rate 86 81 Respiratory Rate 16 18 Blood Pressure 137/68 136/60 Pulse Oximetry 92 96 Oxygen Delivery Method Room Air Room Air BMI result Body Mass Index 25.6 Labs 07/23/24 10:25 Imaging Radiology Impressions: ITS Impressions Head/Neck CTA 07/23/24 12:38 IMPRESSION: 1. Noncontrast head CT demonstrating no evidence of acute infarction, intracranial hemorrhage, mass effect, or edema. No definite hyperdense MCA sign is appreciated on this or the prior examination. 2. There is no evidence of major arterial stenosis, occlusion, dissection, or aneurysm in the major cervical or intracranial arterial vasculature. 3. Mosaic attenuation of the lung parenchyma, most likely on the basis of underlying air trapping. Differential includes constrictive (obliterative) bronchiolitis, hypersensitivity pneumonitis, as well as less commonly bronchial asthma, vasculitis, and chronic PE. 4. There is a 2.7 x 1.4 x 2.4 cm mass within the right inferior superficial parotid gland with central dense calcification. Differential diagnosis is most likely related to pleomorphic adenoma or Wharthin tumor. Correlate with any prior imaging or biopsy of this abnormality. 5. Left substernal goiter. Electronically signed by: Carlos Dixon MD 07/23/2024 02:22 PM EST RP Arterial/Peripheral Duplex 07/27/24 13:20 IMPRESSION: Mild inflow disease, both lower extremity. Electronically signed by: Kevin Redman MD 07/27/2024 02:26 PM EST RP Medications Medications Current Medications Acetaminophen (Acetaminophen 325 Mg Tablet) 650 mg PO Q6H PRN PRN Reason: Headache/Pain, Scale 1-10 Al Hydroxide/Mg Hydroxide (Magnesium Hydrox/Alum Hydrox 30 Ml Oral.Susp) 30 ml PO Q6H PRN PRN Reason: Heartburn/Nausea Cyanocobalamin (Cyanocobalamin (Vitamin B-12) 1,000 Mcg Tablet) 1,000 mcg PO DAILY [facility] Last Admin: 07/27/24 09:44 Dose: 1,000 mcg Ezetimibe (Ezetimibe 10 Mg Tablet) 10 mg PO DAILY [facility] Last Admin: 07/27/24 09:44 Dose: 10 mg Hydroxyzine HCl (Hydroxyzine Hcl 25 Mg Tablet) 25 mg PO Q6H PRN PRN Reason: mild anxiety Last Admin: 07/25/24 20:31 Dose: 25 mg Losartan Potassium (Losartan Potassium 25 Mg Tablet) 25 mg PO DAILY [facility]; Protocol Last Admin: 07/27/24 09:44 Dose: 25 mg Magnesium Hydroxide (Milk Of Magnesia 30 Ml Oral.Susp) 30 ml PO DAILY PRN PRN Reason: Constipation Risperidone (Risperidone 0.5 Mg Tablet) 0.5 mg PO BEDTIME [facility] Last Admin: 07/26/24 20:31 Dose: 0.5 mg Rivastigmine Tartrate (Rivastigmine Tartrate 1.5 Mg Capsule) 1.5 mg PO BID [facility] Last Admin: 07/27/24 09:44 Dose: 1.5 mg Sertraline HCl (Sertraline Hcl 50 Mg Tablet) 50 mg PO DAILY [facility] Last Admin: 07/27/24 09:44 Dose: 50 mg Trazodone HCl (Trazodone Hcl 50 Mg Tablet) 50 mg PO BEDTIME MRX1 PRN PRN Reason: Insomnia Allergies Allergies Allergy/AdvReac Type Severity Reaction Status Date / Time No Known Allergies Allergy Verified 07/19/24 20:01 Assessment & Plan Assessment & Plan (1) Major neurocognitive disorder due to another medical condition, with psychotic disturbance: Status: Acute Code(s): F02.82 - Dementia in other diseases classified elsewhere, unspecified severity, with psychotic disturbance Plan The patient has a history of recurrent depression 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 History of depression history of hypertension hyperlipidemia unclear if has been treated unclear if patient has been taking her medication has been on Aricept in the past. Check h ead CT UA CBC Chem profile TSH B12 folate start Risperdal 0.5 mg at bedtime case was discussed with patient's son who will bring in paperwork regarding healthcare proxy which can be activated when we have clarification. Patient currently on a section 12 B continue sertraline start low-dose Exelon continue outpatient medications 07/21: Continue current management and treatment plan. Consider neurology consultation for head CT reading of Slightly dense right MCA possibly dense hematocrit. 07/22: continue current management and treatment plan. Consider neurology consultation for head CT reading of Slightly dense right MCA possibly dense hematocrit. 07/[address] had shown right MCA density. ordered CTA- no definitive signs of MCA density, no evidence of occlusion, dissection, stenosis or aneurysm. Mass with central dense calcification on right parotid gland measuring 2.7 x 1.4 x 2.4 cm (may need to be referred to ENT OP). 07/24 continue current tx. HCP received from family but it is invalid as it does not contain witness signatures. Pt does have capacity to name HCP and understands form. 07/25 continue tx 07/26 ordered US arterial duplex BI w/ [facility]. consulted Dr. Mg who initially had recommended consult to vascular, however, per Dr. Rosales they don't see pts on psych units. Dr. Mg then recommended US arterial duplex BI w/STE[facility]. 07/27 will increase risperidone 0.5mg po BID.US arterial with [facility] results show mild inflow on both LE- consult hospitalist, Dr. Mg. Reason for continued inpatient stay Substantial Risk for: inability to function Time Spent With Patient Time: Total time managing care of this patient today ____ minutes.
[2024-07-27 20:00] VITALS: BP 130/61; PULSE 89; RESP 16; TEMP 36.6; O2SAT 94
[2024-07-27] MEDS: risperiDONE 0.5 MG TABLET PO (20:52)
[2024-07-28 08:00] VITALS: BP 138/61; PULSE 95; RESP 18; TEMP 36; O2SAT 94
[2024-07-28] MEDS: Ezetimibe 10 MG TABLET PO (09:00)
[2024-07-28] MEDS: Sertraline HCL 50 MG TABLET PO (09:00)
[2024-07-28] MEDS: Rivastigmine Tartrate 1.5 MG CAPSULE PO ×2 (09:00→21:30)
[2024-07-28] MEDS: Cyanocobalamin (Vitamin B-12) 1,000 MCG TABLET 1000 MCG PO (09:00)
[2024-07-28] MEDS: Losartan Potassium 25 MG TABLET PO (09:00)
--- NOTE | 2024-07-28 16:52 | P.PNPSI_ITS ---
Subjective Subjective Date of Service: 07/28/24 Reason For Visit: paranoia memory loss Interim History: no questions or complaints. per staff, chatty, pleasant. A&O x3. Mental Status Exam Mental Status Exam Narrative: Appearance: wearing casual clothing, good hygiene, in NAD Behavior: cooperative and friendly Psychomotor: no agitation or retardation, no motor symptoms noted on lower or upper extremities. Speech: clear, normal rate/rhythm/volume, spontaneous TP: mostly linear TC: feeling safe here, likes people here Mood: good Affect: congruent, bright SI: none HI: none VH/AH: none Delusions: no overt now, still thinks someone was at her house Insight/judgment: impaired x 2. Memory/cog: alert, not oriented to place, month, year nor situation Diagnostics Vital Signs (24Hr): Vital Signs - 24 hr 07/27/24 20:00 07/28/24 08:00 Temperature 97.9 F 96.8 F Pulse Rate 89 95 Respiratory Rate 16 18 Blood Pressure 130/61 138/61 Pulse Oximetry 94 94 Oxygen Delivery Method Room Air BMI result Body Mass Index 25.6 Labs 07/23/24 10:25 Imaging Radiology Impressions: ITS Impressions Head/Neck CTA 07/23/24 12:38 IMPRESSION: 1. Noncontrast head CT demonstrating no evidence of acute infarction, intracranial hemorrhage, mass effect, or edema. No definite hyperdense MCA sign is appreciated on this or the prior examination. 2. There is no evidence of major arterial stenosis, occlusion, dissection, or aneurysm in the major cervical or intracranial arterial vasculature. 3. Mosaic attenuation of the lung parenchyma, most likely on the basis of underlying air trapping. Differential includes constrictive (obliterative) bronchiolitis, hypersensitivity pneumonitis, as well as less commonly bronchial asthma, vasculitis, and chronic PE. 4. There is a 2.7 x 1.4 x 2.4 cm mass within the right inferior superficial parotid gland with central dense calcification. Differential diagnosis is most likely related to pleomorphic adenoma or Wharthin tumor. Correlate with any prior imaging or biopsy of this abnormality. 5. Left substernal goiter. Electronically signed by: Carlos Dixon MD 07/23/2024 02:22 PM [facility] [place] Arterial/Peripheral Duplex 07/27/24 13:20 IMPRESSION: Mild inflow disease, both lower extremity. Electronically signed by: Kevin Redman MD 07/27/2024 02:26 PM [facility] [place] Medications Medications Current Medications Acetaminophen (Acetaminophen 325 Mg Tablet) 650 mg PO Q6H PRN PRN Reason: Headache/Pain, Scale 1-10 Al Hydroxide/Mg Hydroxide (Magnesium Hydrox/Alum Hydrox 30 Ml Oral.Susp) 30 ml PO Q6H PRN PRN Reason: Heartburn/Nausea Cyanocobalamin (Cyanocobalamin (Vitamin B-12) 1,000 Mcg Tablet) 1,000 mcg PO DAILY [facility] Last Admin: 07/28/24 09:00 Dose: 1,000 mcg Ezetimibe (Ezetimibe 10 Mg Tablet) 10 mg PO DAILY [facility] Last Admin: 07/28/24 09:00 Dose: 10 mg Hydroxyzine HCl (Hydroxyzine Hcl 25 Mg Tablet) 25 mg PO Q6H PRN PRN Reason: mild anxiety Last Admin: 07/25/24 20:31 Dose: 25 mg Losartan Potassium (Losartan Potassium 25 Mg Tablet) 25 mg PO DAILY [facility]; Protocol Last Admin: 07/28/24 09:00 Dose: 25 mg Magnesium Hydroxide (Milk Of Magnesia 30 Ml Oral.Susp) 30 ml PO DAILY PRN PRN Reason: Constipation Risperidone (Risperidone 0.5 Mg Tablet) 0.5 mg PO BEDTIME [facility] Last Admin: 07/27/24 20:52 Dose: 0.5 mg Rivastigmine Tartrate (Rivastigmine Tartrate 1.5 Mg Capsule) 1.5 mg PO BID [facility] Last Admin: 07/28/24 09:00 Dose: 1.5 mg Sertraline HCl (Sertraline Hcl 50 Mg Tablet) 50 mg PO DAILY [facility] Last Admin: 07/28/24 09:00 Dose: 50 mg Trazodone HCl (Trazodone Hcl 50 Mg Tablet) 50 mg PO BEDTIME MRX1 PRN PRN Reason: Insomnia Allergies Allergies Allergy/AdvReac Type Severity Reaction Status Date / Time No Known Allergies Allergy Verified 07/19/24 20:01 Assessment & Plan Assessment & Plan (1) Major neurocognitive disorder due to another medical condition, with psychotic disturbance: Status: Acute Code(s): F02.82 - Dementia in other diseases classified elsewhere, unspecified severity, with psychotic disturbance Plan The patient has a history of recurrent depression 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 History of depression history of hypertension hyperlipidemia unclear if has been treated unclear if patient has been taking her medication has been on Aricept in the past. Check h ead CT UA CBC Chem profile TSH B12 folate start Risperdal 0.5 mg at bedtime case was discussed with patient's son who will bring in paperwork regarding healthcare proxy which can be activated when we have clarification. Patient currently on a section 12 B continue sertraline start low-dose Exelon continue outpatient medications 07/21: Continue current management and treatment plan. Consider neurology consultation for head CT reading of Slightly dense right MCA possibly dense hematocrit. 07/22: continue current management and treatment plan. Consider neurology consultation for head CT reading of Slightly dense right MCA possibly dense hematocrit. 07/[address] had shown right MCA density. ordered CTA- no definitive signs of MCA density, no evidence of occlusion, dissection, stenosis or aneurysm. Mass with central dense calcification on right parotid gland measuring 2.7 x 1.4 x 2.4 cm (may need to be referred to ENT OP). 07/24 continue current tx. HCP received from family but it is invalid as it does not contain witness signatures. Pt does have capacity to name HCP and understands form. 07/25 continue tx 07/26 ordered US arterial duplex BI w/ STEFFANIE. consulted Dr. Mg who initially had recommended consult to vascular, however, per Dr. Rosales they don't see pts on psych units. Dr. Mg then recommended US arterial duplex BI w/STEFFANIE. 07/27 will increase risperidone 0.5mg po BID.US arterial with STEFFANIE results show mild inflow on both LE- consult hospitalist, Dr. Mg. 07/28: stable. continue current mgmt. Reason for continued inpatient stay Substantial Risk for: inability to function Time Spent With Patient Time: Total time managing care of this patient today ____ minutes.
[2024-07-28 20:00] VITALS: BP 118/57; PULSE 84; RESP 16; TEMP 36.3; O2SAT 94
[2024-07-28] MEDS: risperiDONE 0.5 MG TABLET PO (21:30)
[2024-07-29 08:00] VITALS: BP 127/65; PULSE 89; RESP 18; TEMP 36.2; O2SAT 92
[2024-07-29] MEDS: Ezetimibe 10 MG TABLET PO (09:06)
[2024-07-29] MEDS: Losartan Potassium 25 MG TABLET PO (09:06)
[2024-07-29] MEDS: Sertraline HCL 50 MG TABLET PO (09:06)
[2024-07-29] MEDS: Cyanocobalamin (Vitamin B-12) 1,000 MCG TABLET 1000 MCG PO (09:06)
[2024-07-29] MEDS: Rivastigmine Tartrate 1.5 MG CAPSULE PO ×2 (09:06→20:39)
--- NOTE | 2024-07-29 12:52 | P.PNPSI_ITS ---
Subjective Subjective Date of Service: 07/29/24 Reason For Visit: paranoia memory loss Interim History: enthusiastic, euphoric: this is a great place. very laudatory of facility and staff. no questions or complaints. per staff, taking meds, slept 8 hours. Mental Status Exam Mental Status Exam Narrative: Appearance: wearing casual clothing, good hygiene, in NAD Behavior: cooperative and friendly Psychomotor: no agitation or retardation, no motor symptoms noted on lower or upper extremities. Speech: clear, normal rate/rhythm/volume, spontaneous TP: mostly linear TC: feeling safe here, likes people here Mood: good Affect: congruent, bright SI: none HI: none VH/AH: none Delusions: no overt now, still thinks someone was at her house Insight/judgment: impaired x 2. Memory/cog: alert, not oriented to place, month, year nor situation Diagnostics Vital Signs (24Hr): Vital Signs - 24 hr 07/28/24 20:00 07/29/24 08:00 Temperature 97.4 F 97.2 F Pulse Rate 84 89 Respiratory Rate 16 18 Blood Pressure 118/57 L 127/65 Pulse Oximetry 94 92 Oxygen Delivery Method Room Air Room Air BMI result Body Mass Index 25.6 Labs 07/23/24 10:25 Imaging Radiology Impressions: ITS Impressions Head/Neck CTA 07/23/24 12:38 IMPRESSION: 1. Noncontrast head CT demonstrating no evidence of acute infarction, intracranial hemorrhage, mass effect, or edema. No definite hyperdense MCA sign is appreciated on this or the prior examination. 2. There is no evidence of major arterial stenosis, occlusion, dissection, or aneurysm in the major cervical or intracranial arterial vasculature. 3. Mosaic attenuation of the lung parenchyma, most likely on the basis of underlying air trapping. Differential includes constrictive (obliterative) bronchiolitis, hypersensitivity pneumonitis, as well as less commonly bronchial asthma, vasculitis, and chronic PE. 4. There is a 2.7 x 1.4 x 2.4 cm mass within the right inferior superficial parotid gland with central dense calcification. Differential diagnosis is most likely related to pleomorphic adenoma or Wharthin tumor. Correlate with any prior imaging or biopsy of this abnormality. 5. Left substernal goiter. Electronically signed by: Carlos Dixon MD 07/23/2024 02:22 PM [facility] [place] Arterial/Peripheral Duplex 07/27/24 13:20 IMPRESSION: Mild inflow disease, both lower extremity. Electronically signed by: Kevin Redman MD 07/27/2024 02:26 PM [facility] [place] Medications Medications Current Medications Acetaminophen (Acetaminophen 325 Mg Tablet) 650 mg PO Q6H PRN PRN Reason: Headache/Pain, Scale 1-10 Al Hydroxide/Mg Hydroxide (Magnesium Hydrox/Alum Hydrox 30 Ml Oral.Susp) 30 ml PO Q6H PRN PRN Reason: Heartburn/Nausea Cyanocobalamin (Cyanocobalamin (Vitamin B-12) 1,000 Mcg Tablet) 1,000 mcg PO DAILY [facility] Last Admin: 07/29/24 09:06 Dose: 1,000 mcg Ezetimibe (Ezetimibe 10 Mg Tablet) 10 mg PO DAILY [facility] Last Admin: 07/29/24 09:06 Dose: 10 mg Hydroxyzine HCl (Hydroxyzine Hcl 25 Mg Tablet) 25 mg PO Q6H PRN PRN Reason: mild anxiety Last Admin: 07/25/24 20:31 Dose: 25 mg Losartan Potassium (Losartan Potassium 25 Mg Tablet) 25 mg PO DAILY [facility]; Protocol Last Admin: 07/29/24 09:06 Dose: 25 mg Magnesium Hydroxide (Milk Of Magnesia 30 Ml Oral.Susp) 30 ml PO DAILY PRN PRN Reason: Constipation Risperidone (Risperidone 0.5 Mg Tablet) 0.5 mg PO BEDTIME [facility] Last Admin: 07/28/24 21:30 Dose: 0.5 mg Rivastigmine Tartrate (Rivastigmine Tartrate 1.5 Mg Capsule) 1.5 mg PO BID [facility] Last Admin: 07/29/24 09:06 Dose: 1.5 mg Sertraline HCl (Sertraline Hcl 50 Mg Tablet) 50 mg PO DAILY [facility] Last Admin: 07/29/24 09:06 Dose: 50 mg Trazodone HCl (Trazodone Hcl 50 Mg Tablet) 50 mg PO BEDTIME MRX1 PRN PRN Reason: Insomnia Allergies Allergies Allergy/AdvReac Type Severity Reaction Status Date / Time No Known Allergies Allergy Verified 07/19/24 20:01 Assessment & Plan Assessment & Plan (1) Major neurocognitive disorder due to another medical condition, with psychotic disturbance: Status: Acute Code(s): F02.82 - Dementia in other diseases classified elsewhere, unspecified severity, with psychotic disturbance Plan The patient has a history of 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 History of depression history of hypertension hyperlipidemia unclear if has been treated unclear if patient has been taking her medication has been on Aricept in the past. Check h ead CT UA CBC Chem profile TSH B12 folate start Risperdal 0.5 mg at bedtime case was discussed with patient's son who will bring in paperwork regarding healthcare proxy which can be activated when we have clarification. Patient currently on a section 12 B continue sertraline start low-dose Exelon continue outpatient medications 07/21: Continue current management and treatment plan. Consider neurology consultation for head CT reading of Slightly dense right MCA possibly dense hematocrit. 07/22: continue current management and treatment plan. Consider neurology consultation for head CT reading of Slightly dense right MCA possibly dense hematocrit. 07/[address] had shown right MCA density. ordered CTA- no definitive signs of MCA density, no evidence of occlusion, dissection, stenosis or aneurysm. Mass with central dense calcification on right parotid gland measuring 2.7 x 1.4 x 2.4 cm (may need to be referred to ENT OP). 07/24 continue current tx. HCP received from family but it is invalid as it does not contain witness signatures. Pt does have capacity to name HCP and understands form. 07/25 continue tx 07/26 ordered US arterial duplex BI w/ STEFFANIE. consulted Dr. Mg who initially had recommended consult to vascular, however, per Dr. Rosales they don't see pts on psych units. Dr. Mg then recommended US arterial duplex BI w/STEFFANIE. 07/27 will increase risperidone 0.5mg po BID.US arterial with STEFFANIE results show mild inflow on both LE- consult hospitalist, Dr. Mg. 07/28: stable. continue current mgmt. 07/29: as for yesterday. Reason for continued inpatient stay Substantial Risk for: inability to function Time Spent With Patient Time: Total time managing care of this patient today ____ minutes.
[2024-07-29 19:50] VITALS: BP 120/79; PULSE 81; RESP 18; TEMP 36.1; O2SAT 94
[2024-07-29] MEDS: risperiDONE 0.5 MG TABLET PO (20:39)
[2024-07-30 08:00] VITALS: BP 140/60; PULSE 74; RESP 16; TEMP 36.3; O2SAT 96
[2024-07-30] MEDS: Rivastigmine Tartrate 1.5 MG CAPSULE PO ×2 (08:37→20:48)
[2024-07-30] MEDS: Losartan Potassium 25 MG TABLET PO (08:37)
[2024-07-30] MEDS: Sertraline HCL 50 MG TABLET PO (08:37)
--- NOTE | 2024-07-30 08:37 | HO.PSYCHPN ---
Subjective Subjective Date of Service: 07/30/24 Reason For Visit: paranoia memory loss Subjective Notes: Conditional Voluntary Interim History: Pt slept through the night. She has been visible on the unit. Social with peers. No behavioral concerns. Not oriented to situation, place, month or year. She denies any concerns, other than lower back pain (will consult hospitalist). No SI/HI. She is taking medications as prescribed. Review of Systems Review of Systems Pt has no medical complaints at this time. Mental Status Exam Mental Status Exam Narrative: Appearance: wearing casual clothing, good hygiene, in NAD Behavior: cooperative and friendly Psychomotor: no agitation or retardation, no motor symptoms noted on lower or upper extremities. Speech: clear, normal rate/rhythm/volume, spontaneous TP: mostly linear TC: feeling safe here, likes people here Mood: good Affect: congruent, bright SI: none HI: none VH/AH: none Delusions: no overt now, still thinks someone was at her house Insight/judgment: impaired x 2. Memory/cog: alert, not oriented to place, month, year nor situation Diagnostics Vital Signs (24Hr): Vital Signs - 24 hr 07/29/24 19:50 Temperature 97.0 F Pulse Rate 81 Respiratory Rate 18 Blood Pressure 120/79 Pulse Oximetry 94 Oxygen Delivery Method Room Air BMI result Body Mass Index 25.6 Labs 07/23/24 10:25 Imaging Radiology Impressions: ITS Impressions Head/Neck CTA 07/23/24 12:38 IMPRESSION: 1. Noncontrast head CT demonstrating no evidence of acute infarction, intracranial hemorrhage, mass effect, or edema. No definite hyperdense MCA sign is appreciated on this or the prior examination. 2. There is no evidence of major arterial stenosis, occlusion, dissection, or aneurysm in the major cervical or intracranial arterial vasculature. 3. Mosaic attenuation of the lung parenchyma, most likely on the basis of underlying air trapping. Differential includes constrictive (obliterative) bronchiolitis, hypersensitivity pneumonitis, as well as less commonly bronchial asthma, vasculitis, and chronic PE. 4. There is a 2.7 x 1.4 x 2.4 cm mass within the right inferior superficial parotid gland with central dense calcification. Differential diagnosis is most likely related to pleomorphic adenoma or Wharthin tumor. Correlate with any prior imaging or biopsy of this abnormality. 5. Left substernal goiter. Electronically signed by: Carlos Dixon MD 07/23/2024 02:22 PM EST [facility] Arterial/Peripheral Duplex 07/27/24 13:20 IMPRESSION: Mild inflow disease, both lower extremity. Electronically signed by: Kevin Redman MD 07/27/2024 02:26 PM EST [facility] Medications Medications Current Medications Acetaminophen (Acetaminophen 325 Mg Tablet) 650 mg PO Q6H PRN PRN Reason: Headache/Pain, Scale 1-10 Al Hydroxide/Mg Hydroxide (Magnesium Hydrox/Alum Hydrox 30 Ml Oral.Susp) 30 ml PO Q6H PRN PRN Reason: Heartburn/Nausea Cyanocobalamin (Cyanocobalamin (Vitamin B-12) 1,000 Mcg Tablet) 1,000 mcg PO DAILY [facility] Last Admin: 07/29/24 09:06 Dose: 1,000 mcg Ezetimibe (Ezetimibe 10 Mg Tablet) 10 mg PO DAILY [facility] Last Admin: 07/29/24 09:06 Dose: 10 mg Hydroxyzine HCl (Hydroxyzine Hcl 25 Mg Tablet) 25 mg PO Q6H PRN PRN Reason: mild anxiety Last Admin: 07/25/24 20:31 Dose: 25 mg Losartan Potassium (Losartan Potassium 25 Mg Tablet) 25 mg PO DAILY [facility]; Protocol Last Admin: 07/29/24 09:06 Dose: 25 mg Magnesium Hydroxide (Milk Of Magnesia 30 Ml Oral.Susp) 30 ml PO DAILY PRN PRN Reason: Constipation Risperidone (Risperidone 0.5 Mg Tablet) 0.5 mg PO BEDTIME [facility] Last Admin: 07/29/24 20:39 Dose: 0.5 mg Rivastigmine Tartrate (Rivastigmine Tartrate 1.5 Mg Capsule) 1.5 mg PO BID [facility] Last Admin: 07/29/24 20:39 Dose: 1.5 mg Sertraline HCl (Sertraline Hcl 50 Mg Tablet) 50 mg PO DAILY [facility] Last Admin: 07/29/24 09:06 Dose: 50 mg Trazodone HCl (Trazodone Hcl 50 Mg Tablet) 50 mg PO BEDTIME MRX1 PRN PRN Reason: Insomnia Allergies Allergies Allergy/AdvReac Type Severity Reaction Status Date / Time No Known Allergies Allergy Verified 07/19/24 20:01 Assessment & Plan Assessment & Plan (1) Major neurocognitive disorder due to another medical condition, with psychotic disturbance: Status: Acute Code(s): F02.82 - Dementia in other diseases classified elsewhere, unspecified severity, with psychotic disturbance Plan The patient has a history of 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 History of depression history of hypertension hyperlipidemia unclear if has been treated unclear if patient has been taking her medication has been on Aricept in the past. Check h ead CT UA CBC Chem profile TSH B12 folate start Risperdal 0.5 mg at bedtime case was discussed with patient's son who will bring in paperwork regarding healthcare proxy which can be activated when we have clarification. Patient currently on a section 12 B continue sertraline start low-dose Exelon continue outpatient medications 07/21: Continue current management and treatment plan. Consider neurology consultation for head CT reading of Slightly dense right MCA possibly dense hematocrit. 07/22: continue current management and treatment plan. Consider neurology consultation for head CT reading of Slightly dense right MCA possibly dense hematocrit. 07/[address] had shown right MCA density. ordered CTA- no definitive signs of MCA density, no evidence of occlusion, dissection, stenosis or aneurysm. Mass with central dense calcification on right parotid gland measuring 2.7 x 1.4 x 2.4 cm (may need to be referred to ENT OP). 07/24 continue current tx. HCP received from family but it is invalid as it does not contain witness signatures. Pt does have capacity to name HCP and understands form. 07/25 continue tx 07/26 ordered US arterial duplex BI w/ STEFFANIE. consulted Dr. Mg who initially had recommended consult to vascular, however, per Dr. Rosales they don't see pts on psych units. Dr. Mg then recommended US arterial duplex BI w/STEFFANIE. 07/27 will increase risperidone 0.5mg po BID.US arterial with STEFFANIE results show mild inflow on both LE- consult hospitalist, Dr. Mg. 07/28: stable. continue current mgmt. 07/29: as for yesterday. 07/30 continue tx. hospitalist consult for lower back pain and f/u on US arterial duplex STEFFANIE. Reason for continued inpatient stay Substantial Risk for: inability to function Time Spent With Patient Time: Total time managing care of this patient today ____ minutes.
[2024-07-30] MEDS: Ezetimibe 10 MG TABLET PO (08:38)
[2024-07-30] MEDS: Cyanocobalamin (Vitamin B-12) 1,000 MCG TABLET 1000 MCG PO (08:38)
[2024-07-30 20:00] VITALS: BP 130/58; PULSE 87; RESP 16; TEMP 36.2; O2SAT 96
[2024-07-30] MEDS: risperiDONE 0.5 MG TABLET PO (20:48)
[2024-07-31 08:00] VITALS: BP 139/62; PULSE 81; RESP 18; TEMP 36.7; O2SAT 96
[2024-07-31] MEDS: Rivastigmine Tartrate 1.5 MG CAPSULE PO ×2 (08:04→20:40)
[2024-07-31] MEDS: Sertraline HCL 50 MG TABLET PO (08:04)
[2024-07-31] MEDS: Ezetimibe 10 MG TABLET PO (08:05)
[2024-07-31] MEDS: Losartan Potassium 25 MG TABLET PO (08:05)
[2024-07-31] MEDS: risperiDONE 0.5 MG TABLET PO ×2 (08:05→20:40)
[2024-07-31] MEDS: Cyanocobalamin (Vitamin B-12) 1,000 MCG TABLET 1000 MCG PO (08:05)
[2024-07-31] MEDS: Aspirin 81 MG TAB.CHEW PO (17:29)
--- NOTE | 2024-07-31 17:42 | P.PNPSI_ITS ---
Subjective Subjective Date of Service: 07/31/24 Reason For Visit: paranoia memory loss Subjective Notes: Conditional Voluntary Healthcare Proxy: Yes Interim History: Pt slept through the night. She continues taking medications as prescribed. No behavioral concerns. She is very friendly and enjoys socialization. She attends groups. She likes volunteering to do things around the unit. We talked about returning home which she is in agreement. Some residual paranoid delusions of woman she thought was in the house. She was seen by hospitalist, started on aspirin in light of results of US arterial with STEFFANIE. Medication Compliance: Yes Side effects from medications: No Attending Groups: Yes Review of Systems Review of Systems Pt has no medical complaints at this time. Mental Status Exam Mental Status Exam Narrative: Appearance: wearing casual clothing, good hygiene, in NAD Behavior: cooperative and friendly Psychomotor: no agitation or retardation, no motor symptoms noted on lower or upper extremities. Speech: clear, normal rate/rhythm/volume, spontaneous TP: mostly linear TC: feeling safe here, likes people here Mood: good Affect: congruent, bright SI: none HI: none VH/AH: none Delusions: no overt now, still thinks someone was at her house Insight/judgment: impaired x 2. Memory/cog: alert, not oriented to place, month, year nor situation Diagnostics Vital Signs (24Hr): Vital Signs - 24 hr 07/30/24 20:00 07/31/24 08:00 Temperature 97.1 F 98.1 F Pulse Rate 87 81 Respiratory Rate 16 18 Blood Pressure 130/58 L 139/62 Pulse Oximetry 96 96 Oxygen Delivery Method Room Air Room Air BMI result Body Mass Index 25.6 Labs 07/23/24 10:25 Imaging Radiology Impressions: ITS Impressions Head/Neck CTA 07/23/24 12:38 IMPRESSION: 1. Noncontrast head CT demonstrating no evidence of acute infarction, intracranial hemorrhage, mass effect, or edema. No definite hyperdense MCA sign is appreciated on this or the prior examination. 2. There is no evidence of major arterial stenosis, occlusion, dissection, or aneurysm in the major cervical or intracranial arterial vasculature. 3. Mosaic attenuation of the lung parenchyma, most likely on the basis of underlying air trapping. Differential includes constrictive (obliterative) bronchiolitis, hypersensitivity pneumonitis, as well as less commonly bronchial asthma, vasculitis, and chronic PE. 4. There is a 2.7 x 1.4 x 2.4 cm mass within the right inferior superficial parotid gland with central dense calcification. Differential diagnosis is most likely related to pleomorphic adenoma or Wharthin tumor. Correlate with any prior imaging or biopsy of this abnormality. 5. Left substernal goiter. Electronically signed by: Carlos Dixon MD 07/23/2024 02:22 PM EST RP Arterial/Peripheral Duplex 07/27/24 13:20 IMPRESSION: Mild inflow disease, both lower extremity. Electronically signed by: Kevin Redman MD 07/27/2024 02:26 PM EST RP Medications Medications Current Medications Acetaminophen (Acetaminophen 325 Mg Tablet) 650 mg PO Q6H PRN PRN Reason: Headache/Pain, Scale 1-10 Al Hydroxide/Mg Hydroxide (Magnesium Hydrox/Alum Hydrox 30 Ml Oral.Susp) 30 ml PO Q6H PRN PRN Reason: Heartburn/Nausea Aspirin (Aspirin 81 Mg Tab.Chew) 81 mg PO DAILY [facility] Last Admin: 07/31/24 17:29 Dose: 81 mg Cyanocobalamin (Cyanocobalamin (Vitamin B-12) 1,000 Mcg Tablet) 1,000 mcg PO DAILY [facility] Last Admin: 07/31/24 08:05 Dose: 1,000 mcg Ezetimibe (Ezetimibe 10 Mg Tablet) 10 mg PO DAILY [facility] Last Admin: 07/31/24 08:05 Dose: 10 mg Losartan Potassium (Losartan Potassium 25 Mg Tablet) 25 mg PO DAILY [facility]; Protocol Last Admin: 07/31/24 08:05 Dose: 25 mg Magnesium Hydroxide (Milk Of Magnesia 30 Ml Oral.Susp) 30 ml PO DAILY PRN PRN Reason: Constipation Risperidone (Risperidone 0.5 Mg Tablet) 0.5 mg PO BID [facility] Last Admin: 07/31/24 08:05 Dose: 0.5 mg Rivastigmine Tartrate (Rivastigmine Tartrate 1.5 Mg Capsule) 1.5 mg PO BID [facility] Last Admin: 07/31/24 08:04 Dose: 1.5 mg Sertraline HCl (Sertraline Hcl 50 Mg Tablet) 50 mg PO DAILY [facility] Last Admin: 07/31/24 08:04 Dose: 50 mg Trazodone HCl (Trazodone Hcl 50 Mg Tablet) 50 mg PO BEDTIME PRN PRN Reason: Insomnia Allergies Allergies Allergy/AdvReac Type Severity Reaction Status Date / Time No Known Allergies Allergy Verified 07/19/24 20:01 Assessment & Plan Assessment & Plan (1) Major neurocognitive disorder due to another medical condition, with psychotic disturbance: Status: Acute Code(s): F02.82 - Dementia in other diseases classified elsewhere, unspecified severity, with psychotic disturbance Plan The patient has a history of recurrent depression 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 History of depression history of hypertension hyperlipidemia unclear if has been treated unclear if patient has been taking her medication has been on Aricept in the past. Check h ead CT UA CBC Chem profile TSH B12 folate start Risperdal 0.5 mg at bedtime case was discussed with patient's son who will bring in paperwork regarding healthcare proxy which can be activated when we have clarification. Patient currently on a section 12 B continue sertraline start low-dose Exelon continue outpatient medications 07/21: Continue current management and treatment plan. Consider neurology consultation for head CT reading of Slightly dense right MCA possibly dense hematocrit. 07/22: continue current management and treatment plan. Consider neurology consultation for head CT reading of Slightly dense right MCA possibly dense hematocrit. 07/[address] had shown right MCA density. ordered CTA- no definitive signs of MCA density, no evidence of occlusion, dissection, stenosis or aneurysm. Mass with central dense calcification on right parotid gland measuring 2.7 x 1.4 x 2.4 cm (may need to be referred to ENT OP). 07/24 continue current tx. HCP received from family but it is invalid as it does not contain witness signatures. Pt does have capacity to name HCP and understands form. 07/25 continue tx 07/26 ordered US arterial duplex BI w/ STEFFANIE. consulted Dr. Mg who initially had recommended consult to vascular, however, per Dr. Rosales they don't see pts on psych units. Dr. Mg then recommended US arterial duplex BI w/STEFFANIE. 07/27 will increase risperidone 0.5mg po BID.US arterial with STEFFANIE results show mild inflow on both LE- consult hospitalist, Dr. Mg. 07/28: stable. continue current mgmt. 07/29: as for yesterday. 07/30 continue tx. hospitalist consult for lower back pain and f/u on US arterial duplex STEFFANIE. 07/31 seen by hospitalist f/u on US arterial duplex STEFFANIE, started on aspirin. otherwise, stable, no aggression nor combative behaviors. Reason for continued inpatient stay Substantial Risk for: inability to function Time Spent With Patient Time: Total time managing care of this patient today ____ minutes.
--- NOTE | 2024-07-31 17:57 | P.EN_ITS ---
Event Note Date of Service: 08/01/24 Event Note: Pt is an 79 year female admitted to [facility] with hospitalist consult for question of claudication and review of arterial duplex. Pt with advanced dementia has no acute medical complaints other than lower back pain which appears chronic. However, a few days ago pt reported experiencing pain with ambulation and arterial duplex was ordered by Psychiatry, which chills mild inflow disease in both lower extremities. Pt is likely not a surgical candidate, but can follow up outpatient with vascular surgery as needed. In the meantime, will start pt on aspirin 81 mg daily. For lower back pain, continue conservative treatment including Tylenol and lidocaine patches. Time Spent With Patient Time: Total time managing care of this patient today ____ minutes.
[2024-07-31] MEDS: Lidocaine 4 % Patch ADH..PATCH 1 PATCH TRANSDERMA (18:36)
[2024-07-31 20:00] VITALS: BP 128/65; PULSE 81; RESP 16; TEMP 36.2; O2SAT 96
[2024-08-01 08:00] VITALS: BP 142/62; PULSE 75; RESP 18; TEMP 36.8; O2SAT 97
[2024-08-01] MEDS: Aspirin 81 MG TAB.CHEW PO (08:38)
[2024-08-01] MEDS: Losartan Potassium 25 MG TABLET PO (08:38)
[2024-08-01] MEDS: risperiDONE 0.5 MG TABLET PO ×2 (08:38→20:52)
[2024-08-01] MEDS: Rivastigmine Tartrate 1.5 MG CAPSULE PO ×2 (08:38→20:52)
[2024-08-01] MEDS: Cyanocobalamin (Vitamin B-12) 1,000 MCG TABLET 1000 MCG PO (08:38)
[2024-08-01] MEDS: Ezetimibe 10 MG TABLET PO (08:39)
[2024-08-01] MEDS: Lidocaine 4 % Patch ADH..PATCH 1 PATCH TRANSDERMA (08:39)
[2024-08-01] MEDS: Sertraline HCL 50 MG TABLET PO (08:39)
--- NOTE | 2024-08-01 09:52 | P.PNPSI_ITS ---
Subjective Subjective Date of Service: 08/01/24 Reason For Visit: paranoia memory loss Subjective Notes: Conditional Voluntary Healthcare Proxy: Yes Interim History: Pt slept through the night. Pt continues to present as pleasant. No behavioral concerns. She is social and enjoys socializing and going to groups. Plan for d/c tomorrow. No overt psychosis or delusional content. eating well. Medication Compliance: Yes Review of Systems Review of Systems Pt has no medical complaints at this time. Mental Status Exam Mental Status Exam Narrative: Appearance: wearing casual clothing, good hygiene, in NAD Behavior: cooperative and friendly Psychomotor: no agitation or retardation, no motor symptoms noted on lower or upper extremities. Speech: clear, normal rate/rhythm/volume, spontaneous TP: mostly linear TC: feeling safe here, likes people here Mood: good Affect: congruent, bright SI: none HI: none VH/AH: none Delusions: no overt now, still thinks someone was at her house Insight/judgment: impaired x 2. Memory/cog: alert, not oriented to place, month, year nor situation Diagnostics Vital Signs (24Hr): Vital Signs - 24 hr 07/31/24 20:00 08/01/24 08:00 Temperature 97.1 F 98.2 F Pulse Rate 81 75 Respiratory Rate 16 18 Blood Pressure 128/65 142/62 H Pulse Oximetry 96 97 Oxygen Delivery Method Room Air Room Air BMI result Body Mass Index 25.6 Labs 07/23/24 10:25 Imaging Radiology Impressions: ITS Impressions Head/Neck CTA 07/23/24 12:38 IMPRESSION: 1. Noncontrast head CT demonstrating no evidence of acute infarction, intracranial hemorrhage, mass effect, or edema. No definite hyperdense MCA sign is appreciated on this or the prior examination. 2. There is no evidence of major arterial stenosis, occlusion, dissection, or aneurysm in the major cervical or intracranial arterial vasculature. 3. Mosaic attenuation of the lung parenchyma, most likely on the basis of underlying air trapping. Differential includes constrictive (obliterative) bronchiolitis, hypersensitivity pneumonitis, as well as less commonly bronchial asthma, vasculitis, and chronic PE. 4. There is a 2.7 x 1.4 x 2.4 cm mass within the right inferior superficial parotid gland with central dense calcification. Differential diagnosis is most likely related to pleomorphic adenoma or Wharthin tumor. Correlate with any prior imaging or biopsy of this abnormality. 5. Left substernal goiter. Electronically signed by: Carlos Dixon MD 07/23/2024 02:22 PM EST RP Arterial/Peripheral Duplex 07/27/24 13:20 IMPRESSION: Mild inflow disease, both lower extremity. Electronically signed by: Kevin Redman MD 07/27/2024 02:26 PM EST RP Medications Medications Current Medications Acetaminophen (Acetaminophen 325 Mg Tablet) 650 mg PO Q6H PRN PRN Reason: Headache/Pain, Scale 1-10 Al Hydroxide/Mg Hydroxide (Magnesium Hydrox/Alum Hydrox 30 Ml Oral.Susp) 30 ml PO Q6H PRN PRN Reason: Heartburn/Nausea Aspirin (Aspirin 81 Mg Tab.Chew) 81 mg PO DAILY [facility] Last Admin: 08/01/24 08:38 Dose: 81 mg Cyanocobalamin (Cyanocobalamin (Vitamin B-12) 1,000 Mcg Tablet) 1,000 mcg PO DAILY [facility] Last Admin: 08/01/24 08:38 Dose: 1,000 mcg Ezetimibe (Ezetimibe 10 Mg Tablet) 10 mg PO DAILY [facility] Last Admin: 08/01/24 08:39 Dose: 10 mg Lidocaine (Lidocaine 4 % Patch Adh..Patch) 1 patch TRANSDERMA DAILY [facility]; Protocol Last Admin: 08/01/24 08:39 Dose: 1 patch Losartan Potassium (Losartan Potassium 25 Mg Tablet) 25 mg PO DAILY [facility]; Protocol Last Admin: 08/01/24 08:38 Dose: 25 mg Magnesium Hydroxide (Milk Of Magnesia 30 Ml Oral.Susp) 30 ml PO DAILY PRN PRN Reason: Constipation Risperidone (Risperidone 0.5 Mg Tablet) 0.5 mg PO BID [facility] Last Admin: 08/01/24 08:38 Dose: 0.5 mg Rivastigmine Tartrate (Rivastigmine Tartrate 1.5 Mg Capsule) 1.5 mg PO BID [facility] Last Admin: 08/01/24 08:38 Dose: 1.5 mg Sertraline HCl (Sertraline Hcl 50 Mg Tablet) 50 mg PO DAILY [facility] Last Admin: 08/01/24 08:39 Dose: 50 mg Trazodone HCl (Trazodone Hcl 50 Mg Tablet) 50 mg PO BEDTIME PRN PRN Reason: Insomnia Allergies Allergies Allergy/AdvReac Type Severity Reaction Status Date / Time No Known Allergies Allergy Verified 07/19/24 20:01 Assessment & Plan Assessment & Plan (1) Major neurocognitive disorder due to another medical condition, with psychotic disturbance: Status: Acute Code(s): F02.82 - Dementia in other diseases classified elsewhere, unspecified severity, with psychotic disturbance Plan The patient has a history of recurrent depression 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 History of depression history of hypertension hyperlipidemia unclear if has been treated unclear if patient has been taking her medication has been on Aricept in the past. Check h ead CT UA CBC Chem profile TSH B12 folate start Risperdal 0.5 mg at bedtime case was discussed with patient's son who will bring in paperwork regarding healthcare proxy which can be activated when we have clarification. Patient currently on a section 12 B continue sertraline start low-dose Exelon continue outpatient medications 07/21: Continue current management and treatment plan. Consider neurology consultation for head CT reading of Slightly dense right MCA possibly dense hematocrit. 07/22: continue current management and treatment plan. Consider neurology consultation for head CT reading of Slightly dense right MCA possibly dense hematocrit. 07/[address] had shown right MCA density. ordered CTA- no definitive signs of MCA density, no evidence of occlusion, dissection, stenosis or aneurysm. Mass with central dense calcification on right parotid gland measuring 2.7 x 1.4 x 2.4 cm (may need to be referred to ENT OP). 07/24 continue current tx. HCP received from family but it is invalid as it does not contain witness signatures. Pt does have capacity to name HCP and understands form. 07/25 continue tx 07/26 ordered US arterial duplex BI w/ STEFFANIE. consulted Dr. Mg who initially had recommended consult to vascular, however, per Dr. Rosales they don't see pts on psych units. Dr. Mg then recommended US arterial duplex BI w/STEFFANIE. 07/27 will increase risperidone 0.5mg po BID.US arterial with STEFFANIE results show mild inflow on both LE- consult hospitalist, Dr. Mg. 07/28: stable. continue current mgmt. 07/29: as for yesterday. 07/30 continue tx. hospitalist consult for lower back pain and f/u on US arterial duplex STEFFANIE. 07/31 seen by hospitalist f/u on US arterial duplex STEFFANIE, started on aspirin. otherwise, stable, no aggression nor combative behaviors. 08/01 continue tx. dc plan for tomorrow. Reason for continued inpatient stay Substantial Risk for: inability to function Time Spent With Patient Time: Total time managing care of this patient today ____ minutes.
[2024-08-01 20:00] VITALS: BP 148/66; PULSE 83; RESP 16; TEMP 36.4; O2SAT 96
[2024-08-02 08:00] VITALS: BP 143/69; PULSE 84; RESP 18; TEMP 36.4; O2SAT 95
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
[2024-08-02] MEDS: Ezetimibe 10 MG TABLET PO (09:14)
[2024-08-02 09:15] VITALS: BP 143/69
[2024-08-02] MEDS: Losartan Potassium 25 MG TABLET PO (09:15)
[2024-08-02] MEDS: Cyanocobalamin (Vitamin B-12) 1,000 MCG TABLET 1000 MCG PO (09:15)
[2024-08-02] MEDS: Aspirin 81 MG TAB.CHEW PO (09:15)
[2024-08-02] MEDS: Sertraline HCL 50 MG TABLET PO (09:16)
[2024-08-02] MEDS: Lidocaine 4 % Patch ADH..PATCH 1 PATCH TRANSDERMA (09:16)
[2024-08-02] MEDS: risperiDONE 1 MG TABLET PO (09:43)
--- NOTE | 2024-08-02 13:42 | PC.NURSE ---
Patient was aware of discharge, reported readiness for discharge. D/C info given to the patient and her son Scar. Took her belongings with her. Left the unit at 13:25 accompanied by her son Scar.
== END 2024-08-02 13:25 | disposition home or self-care (01) | DRG 884 ==
PROVIDERS: Psychiatry & Neurology Psychiatry; Social Worker; Admitting Provider Psychiatry & Neurology Psychiatry; PCP Family Medicine; Visit Provider Psychiatry & Neurology Psychiatry
DX: F03.92 Unspecified dementia, unspecified severity, with psychotic disturbance (principal); E78.2 Mixed hyperlipidemia; E78.5 Hyperlipidemia, unspecified; I10 Essential (primary) hypertension; Z79.82 Long term (current) use of aspirin; Z79.899 Other long term (current) drug therapy
CPT/HCPCS: 36415; 70450; 70496; 70498; 80053; 80061; 82607; 82746; 83036; 84439; 84443; 93922; 93925; Q9967

== ENCOUNTER 2024-07-19 18:34 | Outpatient (BNV) | payer MEDICARE, OTHER, SELFPAY | END 2024-07-21 07:00 | PROVIDERS: Admitting Provider Psychiatry & Neurology Psychiatry; PCP Family Medicine; Visit Provider Radiology Diagnostic Radiology | DX: F60.0 Paranoid personality disorder (principal) | CPT/HCPCS: 70450 ==

== ENCOUNTER 2024-07-19 18:34 | Outpatient (BNV) | payer MEDICARE, OTHER, SELFPAY | END 2024-07-23 12:38 | PROVIDERS: Admitting Provider Psychiatry & Neurology Psychiatry; PCP Family Medicine; Visit Provider Radiology Diagnostic Radiology | DX: G46.8 Other vascular syndromes of brain in cerebrovascular diseases (principal) | CPT/HCPCS: 70496; 70498 ==

== ENCOUNTER → 2024-07-19 18:34 | Outpatient (BNV) | payer MEDICARE, OTHER, SELFPAY | PROVIDERS: Admitting Provider Psychiatry & Neurology Psychiatry; PCP Family Medicine; Visit Provider Student in an Organized Health Care Education/Training Program | DX: Z02.2 Encounter for examination for admission to residential institution (principal) | CPT/HCPCS: 99429 ==

== ENCOUNTER → 2024-07-19 18:34 | Outpatient (BNV) | payer MEDICARE, OTHER, SELFPAY | PROVIDERS: Admitting Provider Psychiatry & Neurology Psychiatry; PCP Family Medicine; Visit Provider Psychiatry & Neurology Psychiatry | DX: F02.82 Dementia in other diseases classified elsewhere, unspecified severity, with psychotic disturbance (principal); F33.9 Major depressive disorder, recurrent, unspecified; Z00.8 Encounter for other general examination | CPT/HCPCS: 99232 ==